=== PATIENT | male | born 1960 | race Caucasian/White ===

== ENCOUNTER 2018-11-05 01:57 | Emergency (ER) | payer OTHER ==
[2018-11-05 02:43] VITALS: TEMP 98.1; BMI 32.1
[2018-11-05] MEDS ORDERED: SODIUM CHLORIDE 1,000 ML IV STA ×2 (03:01→08:50)
[2018-11-05] MEDS ORDERED: ONDANSETRON 4 MG/2 ML VIAL IVPUSH ONE (03:01)
--- NOTE | 2018-11-05 03:06 | PDOC ---
History of Present Illness - General Chief Complaint: Nausea/Vomiting Stated Complaint: VOMITING Time Seen by Provider: 11/05/18 02:56 History Source: Patient Exam Limitations: No Limitations - History of Present Illness Travel History: No Initial Comments: 11/05/18 03:02 HISTORY OF PRESENT ILLNESS: This 58-year-old male with history of NIDDM who presents emergency department for evaluation of epigastric pain and vomiting which started approximate 5:00 this afternoon. Patient reports went to restoration when he came home started to feel nauseous and that's when he had vomited. He is attempted to try to drink and eat after vomiting he continues to experience vomiting. He denies any headaches, chest pain, shortness of breath. No recent travel or sick contacts. PAST MEDICAL HISTORY: NIDDM SURGICAL HISTORY: Denies ALLERGIES: No known drug allergies REVIEW OF SYSTEMS General/Constitutional: Denies fever or chills. Denies weakness, weight change. HEENT: Denies change in vision. Denies ear pain or discharge. Denies sore throat. Cardiovascular: Denies chest pain or shortness of breath. Respiratory: Denies cough, wheezing, or hemoptysis. Gastrointestinal:(+)nausea, vomiting, brown diarrhea. Denies constipation. Denies rectal bleeding. Genitourinary: Denies dysuria, frequency, or change in urination. Musculoskeletal: Denies joint or muscle swelling or pain. (+)upper back pain. Skin and breasts: Denies rash or easy bruising. Neurologic: Denies headache, vertigo, loss of consciousness, or loss of sensation. Psychiatric: Denies depression or anxiety. Endocrine: Denies increased thirst. Denies abnormal weight change. Hematologic/Lymphatic: Denies anemia, easy bleeding, or history of blood clots. Allergic/Immunologic: Denies hives or skin allergy. Denies latex allergy. PHYSICAL EXAM General Appearance: Well-appearing, appropriately dressed. No apparent distress , no intoxication. Respiratory/Chest: Lungs CTAB. No shortness of breath, chest tenderness, respiratory distress, accessory muscle use. No crackles, rales, rhonchi, stridor , wheezing, dullness Cardiovascular: RRR. S1, S2. No JVD, murmur, bradycardia, tachycardia. Gastrointestinal/Abdominal: Normal bowel sounds. Abdomen soft, non-distended. No tenderness or rebound tenderness. No organomegaly, pulsatile mass, guarding, hernia, hepatomegaly, splenomegaly. Musculoskeletal/Extremities: Normal inspection. FROM of all extremities, normal capillary refill. Pelvis Stable. No CVA tenderness. No tenderness to extremities, pedal edema, swelling, erythema or deformity. Past History - Past Medical History Allergies/Adverse Reactions: Allergies Allergy/AdvReac Type Severity Reaction Status Date / Time No Known Allergies Allergy Verified 11/05/18 02:43 Home Medications: Ambulatory Orders NK [No Known Home Medication] 11/05/18 - Suicide/Smoking/Psychosocial Hx Smoking History: Never smoked Have you smoked in the past 12 months: No Information on smoking cessation initiated: No Hx Alcohol Use: No Drug/Substance Use Hx: No *Physical Exam - Vital Signs Last Vital Signs Temp Pulse Resp BP Pulse Ox 98.1 F 105 H 18 128/76 97 11/05/18 01:57 11/05/18 01:57 11/05/18 01:57 11/05/18 01:57 11/05/18 01:57 Moderate Sedation - Procedure Monitoring Vital Signs: Procedure Monitoring Vital Signs Temperature 98.1 F 11/05/18 01:57 Pulse Rate 105 H 11/05/18 01:57 Respiratory Rate 18 11/05/18 01:57 Blood Pressure 128/76 11/05/18 01:57 O2 Sat by Pulse Oximetry (%) 97 11/05/18 01:57 Heart Score/ECG Review - History History: Slightly suspicious - Electrocardiogram EKG: Normal - Age Age: 45-65 - Risk Factors Risk Factors Heart Score: Yes Hx Diabetes Based on the list above the patient has:: 1-2 risk factors - Troponin Troponin: </= normal limit - Score Heart Score - Total: 2 - ECG Impressions Normal ECG: Yes ED Treatment Course - LABORATORY CBC & Chemistry Diagram: 11/05/18 03:30 11/05/18 03:30 Medical Decision Making - Medical Decision Making 11/05/18 03:05 A/P: 58-year-old male with epigastric pain, nausea and vomiting for 10 hours Labs including cardiac profile and lipase EKG Chest x-ray IV fluids Zofran Sono 11/05/18 05:24 CT as read by imaging personal driver: No evidence of acute pathology. 11/05/18 05:47 Chest x-rays read by me: Angles clear. Cardiac silhouette is within normal limits. No focal infiltrates consolidations present. Visualized osseous structures are intact. 11/05/18 07:05 Sign out given to nurse practitioner Lanny. *DC/Admit/Observation/Transfer - Discharge Dispostion Condition at time of disposition: Fair - Referrals Referrals: Amira Mansfield [Primary Care Provider] - - Patient Instructions - Post Discharge Activity
[2018-11-05] MEDS ORDERED: ONDANSETRON 4 MG/2 ML VIAL ONE (03:18)
[2018-11-05] MEDS ORDERED: RANITIDINE HCL 150 MG TABLET (FP) PO ONE (03:29)
[2018-11-05] MEDS ORDERED: MAG HYDROX/AL HYDROX/SIMETH -MYLANTA- ORAL SUSPENSION PO ONE (03:29)
[2018-11-05] MEDS ORDERED: LIDOCAINE VISCOUS 2% ORAL/TOP 20 ML UNIT-DOSE CUP PO ONE (03:29)
[2018-11-05] MEDS ORDERED: LIDOCAINE VISCOUS 2% ORAL/TOP 20 ML UNIT-DOSE CUP ONE (03:32)
[2018-11-05] MEDS ORDERED: RANITIDINE HCL 150 MG TABLET (FP) ONE (03:32)
[2018-11-05] MEDS ORDERED: MAG HYDROX/AL HYDROX/SIMETH 30 ML UNIT-DOSE CUP ONE (03:33)
[2018-11-05 03:35] LABS: BASO % 0.2 % (0-2.0); EOS % 0.7 % (0-4.5); HEMATOCRIT 45.2 % (35.4-49); HEMOGLOBIN 15.8 GM/dL (11.7-16.9); LYMPH % 6.2 % (8-40); MCH 30.5 pg (25.7-33.7); MEAN CELL VOLUME 87.1 fl (80-96); MEAN PLT VOLUME 9.7 fl (7.5-11.1); NEUT % 89.9 % (42.8-82.8); PLATELET COUNT 172 K/MM3 (134-434); RBC 5.19 M/mm3 (4.00-5.60); RDW 13.6 % (11.9-15.9); WHITE BLOOD COUNT 10.2 K/mm3 (4.0-10.0)
[2018-11-05 03:41] LABS: URINE APPEARANCE CLEAR; URINE BILIRUBIN NEGATIVE (<2.0 mg/dL); URINE COLOR YELLOW; URINE GLUCOSE (UA) 3+ (NEGATIVE); URINE KETONE TRACE (NEGATIVE); URINE LEUK ESTERASE NEGATIVE (NEGATIVE); URINE NITRITE NEGATIVE (NEGATIVE); URINE PROTEIN NEGATIVE (NEGATIVE); URINE UROBILINOGEN NEGATIVE mg/dL (0.2-1.0)
[2018-11-05 04:27] LABS: ALBUMIN 4.2 g/dl (3.4-5.0); ALK PHOS 94 U/L (45-117); ANION GAP 8 MMOL/L (8-16); BILIRUBIN,TOTAL 0.7 mg/dL (0.2-1); BLOOD UREA NITROGEN 18 mg/dL (7-18); CALCIUM 8.9 mg/dL (8.5-10.1); CHLORIDE 101 mmol/L (98-107); CO2 26 mmol/L (21-32); CREATININE 0.9 mg/dL (0.55-1.3); GLUCOSE,RANDOM 259 mg/dL (74-106); LIPASE 149 U/L (73-393); POTASSIUM 5.3 mmol/L (3.5-5.1); SGOT/AST 27 U/L (15-37); SGPT/ALT 28 U/L (13-61); SODIUM 135 mmol/L (136-145); TOT PROT 7.9 g/dl (6.4-8.2)
--- NOTE | 2018-11-05 05:02 | PDOC ---
*Physical Exam - Vital Signs Last Vital Signs Temp Pulse Resp BP Pulse Ox 98.1 F 105 H 18 128/76 97 11/05/18 01:57 11/05/18 01:57 11/05/18 01:57 11/05/18 01:57 11/05/18 01:57 ED Treatment Course - LABORATORY CBC & Chemistry Diagram: 11/05/18 03:30 11/05/18 03:30 - ADDITIONAL ORDERS Additional order review: Laboratory Results 11/05/18 11/05/18 03:30 03:30 Sodium 135 L Potassium 5.3 H Chloride 101 Carbon Dioxide 26 Anion Gap 8 BUN 18 Creatinine 0.9 Creat Clearance w eGFR > 60 Random Glucose 259 H Calcium 8.9 Total Bilirubin 0.7 AST 27 ALT 28 Alkaline Phosphatase 94 Creatine Kinase 104 Troponin I < 0.02 Total Protein 7.9 Albumin 4.2 Lipase 149 Urine Color Yellow Urine Appearance Clear Urine pH 5.0 Ur Specific [place] 1.031 Urine Protein Negative Urine Glucose (UA) 3+ H Urine Ketones Trace H Urine Blood Negative Urine Nitrite Negative Urine Bilirubin Negative Urine Urobilinogen Negative Ur Leukocyte Esterase Negative 11/05/18 03:30 RBC 5.19 MCV 87.1 MCHC 35.0 RDW 13.6 MPV 9.7 Neutrophils % 89.9 H Lymphocytes % 6.2 L Monocytes % 3.0 L Eosinophils % 0.7 Basophils % 0.2 - Medications Given in the ED: ED Medications Discontinued Medications Generic Name Dose Route Start Last Admin Trade Name Freq PRN Reason Stop Dose Admin Al Hydroxide/Mg Hydroxide 30 ml 11/05/18 03:29 11/05/18 03:36 Mylanta Suspension - PO 11/05/18 03:30 30 ml ONCE ONE Administration Sodium Chloride 1,000 mls @ 1,000 mls/hr 11/05/18 03:01 11/05/18 03:29 Normal Saline - IV 11/05/18 04:00 1,000 mls/hr ASDIR STA Administration Lidocaine HCl 20 ml 11/05/18 03:29 11/05/18 03:36 Xylocaine 2% Viscous Oral - PO 11/05/18 03:30 20 ml ONCE ONE Administration Ondansetron HCl 4 mg 11/05/18 03:01 11/05/18 03:29 Zofran Injection IVPUSH 11/05/18 03:02 4 mg ONCE ONE Administration Ranitidine HCl 150 mg 11/05/18 03:29 11/05/18 03:37 Zantac - PO 11/05/18 03:30 150 mg ONCE ONE Administration Medical Decision Making - Medical Decision Making 11/05/18 05:02 Patient seen by the advanced practice provider under my direct supervision. Ancillary testing reviewed as necessary. I agree with plan as outlined by the advanced practice provider. *DC/Admit/Observation/Transfer Diagnosis at time of Disposition: Epigastric pain - Discharge Dispostion Disposition: HOME Condition at time of disposition: Improved - Prescriptions Prescriptions: Ranitidine HCl [Zantac] 150 mg PO DAILY #30 tablet - Referrals Referrals: [facility] [place] [facility] [place] [Provider Group] - Call tomorrow (Primary care) - Patient Instructions Printed Discharge Instructions: DI for Gastritis Additional Instructions: -Take Zantac as prescribed for stomach pain -Follow up with our primary care clinic (referral enclosed) -Return for worsening pain, difficulty breathing, or any other concerning symptoms DO NOT TAKE YOUR METFORMIN TODAY as it interacts with the CT scan contrast Print Language: ALBANIAN - Post Discharge Activity
--- NOTE | 2018-11-05 08:31 | PDOC ---
*Physical Exam - Vital Signs Last Vital Signs Temp Pulse Resp BP Pulse Ox 98.1 F 92 H 18 123/64 97 11/05/18 01:57 11/05/18 06:45 11/05/18 06:45 11/05/18 06:45 11/05/18 06:45 ED Treatment Course - LABORATORY CBC & Chemistry Diagram: 11/05/18 03:30 11/05/18 03:30 - ADDITIONAL ORDERS Additional order review: Laboratory Results 11/05/18 11/05/18 11/05/18 06:57 03:30 03:30 Sodium 135 L Potassium 5.3 H Chloride 101 Carbon Dioxide 26 Anion Gap 8 BUN 18 Creatinine 0.9 Creat Clearance w eGFR > 60 Random Glucose 259 H Calcium 8.9 Total Bilirubin 0.7 AST 27 ALT 28 Alkaline Phosphatase 94 Creatine Kinase 104 Troponin I < 0.02 < 0.02 Total Protein 7.9 Albumin 4.2 Lipase 149 Urine Color Yellow Urine Appearance Clear Urine pH 5.0 Ur Specific [place] 1.031 Urine Protein Negative Urine Glucose (UA) 3+ H Urine Ketones Trace H Urine Blood Negative Urine Nitrite Negative Urine Bilirubin Negative Urine Urobilinogen Negative Ur Leukocyte Esterase Negative 11/05/18 03:30 RBC 5.19 MCV 87.1 MCHC 35.0 RDW 13.6 MPV 9.7 Neutrophils % 89.9 H Lymphocytes % 6.2 L Monocytes % 3.0 L Eosinophils % 0.7 Basophils % 0.2 - Medications Given in the ED: ED Medications Discontinued Medications Generic Name Dose Route Start Last Admin Trade Name Freq PRN Reason Stop Dose Admin Al Hydroxide/Mg Hydroxide 30 ml 11/05/18 03:29 11/05/18 03:36 Mylanta Suspension - PO 11/05/18 03:30 30 ml ONCE ONE Administration Sodium Chloride 1,000 mls @ 1,000 mls/hr 11/05/18 03:01 11/05/18 03:29 Normal Saline - IV 11/05/18 04:00 1,000 mls/hr ASDIR STA Administration Lidocaine HCl 20 ml 11/05/18 03:29 11/05/18 03:36 Xylocaine 2% Viscous Oral - PO 11/05/18 03:30 20 ml ONCE ONE Administration Ondansetron HCl 4 mg 11/05/18 03:01 11/05/18 03:29 Zofran Injection IVPUSH 11/05/18 03:02 4 mg ONCE ONE Administration Ranitidine HCl 150 mg 11/05/18 03:29 11/05/18 03:37 Zantac - PO 11/05/18 03:30 150 mg ONCE ONE Administration Medical Decision Making - Medical Decision Making 11/05/18 10:10 Us demonstrates no gallstones/evidence of cholecystitis. There is possible fatty infiltration of the liver, however LFTs are within normal limits. Trop neg x 2. Symptoms resolved, patient tolerated PO. He does have a history of acid reflux and reports that he was drinking more coffee than normal yesterday; symptoms may be attributable to this. He did have endoscopy/colonoscopy with Dr. Jaimes last year, and states that he will follow-up with him if symptoms recur. *DC/Admit/Observation/Transfer Diagnosis at time of Disposition: Epigastric pain - Discharge Dispostion Disposition: HOME Condition at time of disposition: Improved Decision to Admit order: No - Prescriptions Prescriptions: Ranitidine HCl [Zantac] 150 mg PO DAILY #30 tablet - Referrals Referrals: [facility] [place] [facility] [place] [Provider Group] - Call tomorrow (Primary care) - Patient Instructions Printed Discharge Instructions: DI for Gastritis Additional Instructions: -Take Zantac as prescribed for stomach pain -Follow up with our primary care clinic (referral enclosed) -Return for worsening pain, difficulty breathing, or any other concerning symptoms DO NOT TAKE YOUR METFORMIN TODAY as it interacts with the CT scan contrast Print Language: PERSIAN - Post Discharge Activity
--- NOTE | 2018-11-05 09:54 | EKG ---
Test Reason : Blood Pressure : / mmHG Vent. Rate : 100 BPM Atrial Rate : 100 BPM P-R Int : 164 ms QRS Dur : 092 ms QT Int : 344 ms P-R-T Axes : 037 -09 028 degrees QTc Int : 443 ms NORMAL SINUS RHYTHM NORMAL ECG NO PREVIOUS ECGS AVAILABLE Confirmed by RACHEL PAL, JO ANN ([id number]) on 11/05/2018 9:54:31 AM Referred By: Confirmed By:JO ANN RAMOS MD
[2018-11-05 10:44] VITALS: BP 129/72; PULSE 77
== END 2018-11-05 10:44 | disposition home or self-care (01) ==
LOC: JER 01:57
PROC: 3E033GC Introduction of Other Therapeutic Substance into Peripheral Vein, Percutaneous Approach (ICD-10-PCS; principal; 2018-11-05)
PROC: 3E0337Z Introduction of Electrolytic and Water Balance Substance into Peripheral Vein, Percutaneous Approach (ICD-10-PCS; 2018-11-05)
DX: R10.13 Epigastric pain (principal); E11.9 Type 2 diabetes mellitus without complications
CPT/HCPCS: 36415; 71046-TC-FY; 74177-TC; 76705-TC; 80053; 81003; 82550; 83690; 84484; 85025; 93005; 93010; 96361; 96374; 99282-25; J7030

== ENCOUNTER 2019-02-03 09:58 | Emergency (ER) | payer OTHER ==
[2019-02-03 10:10] VITALS: BP 142/73; PULSE 78; TEMP 97.8; BMI 31.2
[2019-02-03] MEDS ORDERED: KETOROLAC TROMETHAMINE 60 MG/2 ML VIAL IM ONE (11:04)
[2019-02-03] MEDS ORDERED: KETOROLAC TROMETHAMINE 60 MG/2 ML VIAL ONE (11:06)
--- NOTE | 2019-02-03 11:08 | PDOC ---
History of Present Illness - General Chief Complaint: Back Pain Stated Complaint: RT. SIDE LOWER BACK PAIN Time Seen by Provider: 02/03/19 10:21 History Source: Patient Exam Limitations: Clinical Condition - History of Present Illness Initial Comments: 02/03/19 11:09 Patient with history of chronic back pain and sciatica be managed by pain management present with complaint of worsening right lower back pain radiating down posterior right thigh area patient reported has been getting cortisone shot by pain management for the past 2 years which he had a shot last month but has not been helping the pain now. Patient has not seen orthopedics for his pain should reported injury 4 years ago which he was found to have multiple herniated disc in the lower back and being managed by pain management and physical therapy. Denies urinary or fecal incontinence. Timing/Duration: getting worse, other (4 years) Past History - Past Medical History Allergies/Adverse Reactions: Allergies Allergy/AdvReac Type Severity Reaction Status Date / Time No Known Allergies Allergy Verified 11/05/18 02:43 Home Medications: Ambulatory Orders Ranitidine HCl [Zantac] 150 mg PO DAILY #30 tablet 11/05/18 Acetaminophen 500 mg PO QID PRN 02/03/19 Lidocaine 5% Patch [Lidoderm -] 1 patch TP DAILY #30 patch 02/03/19 Methocarbamol [Robaxin -] 750 mg PO Q8H PRN #20 tablet 02/03/19 Naproxen 500 mg PO BID PRN #20 tablet. 02/03/19 COPD: No Diabetes: Yes Hypercholesterolemia: Yes Other medical history: PROSTATE - Immunization History Td Vaccination: Yes Immunization Up to Date: Yes - Suicide/Smoking/Psychosocial Hx Smoking History: Never smoked Have you smoked in the past 12 months: No Hx Alcohol Use: No Drug/Substance Use Hx: No Review of Systems - Review of Systems Able to Perform ROS?: Yes Is the patient limited Khmer proficient: No Constitutional: No: Weakness HEENTM: No: Symptoms Reported Respiratory: No: Symptoms reported Cardiac (ROS): No: Symptoms Reported ABD/GI: No: Symptoms Reported, Nausea, Vomiting : Yes: See HPI. No: Incontinence Musculoskeletal: Yes: Symptoms Reported, See HPI, Back Pain, Muscle Pain (right lower back raditing down leg), Muscle Weakness (right lower back radiating down right posterior thigh). No: Joint Stiffness Neurological: Yes: Tingling. No: Numbness, Paresthesia All Other Systems: Reviewed and Negative *Physical Exam - Vital Signs Last Vital Signs Temp Pulse Resp BP Pulse Ox 97.8 F 78 18 142/73 99 02/03/19 10:06 02/03/19 10:06 02/03/19 10:06 02/03/19 10:06 02/03/19 10:06 - Physical Exam Comments: 02/03/19 12:25 GENERAL: Well developed, well nourished. Awake and alert in moderate acute distress. CARDIOVASCULAR: Regular rate and rhythm. No murmurs, rubs, or gallops. PULMONARY: No evidence of respiratory distress. ABDOMINAL: Soft. Non-tender. Non-distended. No rebound or guarding. No organomegaly. Normoactive bowel sounds MUSCULOSKELETAL : moderate tenderness over right paravertebral muscle of lower lumbosacral spine of L2-S1 which is worsened with elevation of right LE. No bony deformities EXTREMITIES: No cyanosis. No clubbing. No edema. No calf tenderness. SKIN: Warm and dry. Normal capillary refill. No rashes. No jaundice. NEUROLOGICAL: Alert, awake, appropriate. No motor deficits in the lower extremities. Gait is normal without ataxia. PSYCHIATRIC: Cooperative. Good eye contact. Appropriate mood and affect. General Appearance: Yes: Nourished, Appropriately Dressed, Moderate Distress Medical Decision Making - Medical Decision Making 02/03/19 11:10 Patient with history of chronic back pain and sciatica be managed by pain management present with complaint of worsening right lower back pain radiating down posterior right thigh area patient reported has been getting cortisone shot by pain management for the past 2 years which he had a shot last month but has not been helping the pain now. Patient has not seen orthopedics for his pain should reported injury 4 years ago which he was found to have multiple herniated disc in the lower back and being managed by pain management and physical therapy. Denies urinary or fecal incontinence. Exam significant for moderate tenderness to right lower vertebra muscle of the lower lumbar spine of L2-S1 which is worse with elevation of right lower extremity. Toradol 60 mg IM given for pain. Patient will be discharged home on naproxen, topical lidocaine patch and Robaxin muscle relaxer with orthopedist spine follow -up *DC/Admit/Observation/Transfer Diagnosis at time of Disposition: Lumbago with sciatica, right side Qualifiers: Chronicity: chronic Back pain laterality: right Qualified Code(s): M54.41 - Lumbago with sciatica, right side - Discharge Dispostion Disposition: HOME Condition at time of disposition: Stable Decision to Admit order: No - Prescriptions Prescriptions: Lidocaine 5% Patch [Lidoderm -] 1 patch TP DAILY #30 patch Methocarbamol [Robaxin -] 750 mg PO Q8H PRN #20 tablet PRN Reason: Back Pain Naproxen 500 mg PO BID PRN #[address] MARTINEZ Reason: Back Pain - Referrals Referrals: Braxton Jiang MD, FA[facility] [Staff Physician] - LaReji MD [Staff Physician] - - Patient Instructions Printed Discharge Instructions: Managing Chronic Low Back Pain, DI for Low Back Pain Additional Instructions: Take medication as prescribed. Apply heat to lower back 2-3 times per day as needed for pain. Follow-up with referred spine orthopedics - Post Discharge Activity Forms/Work/School Notes: Back to Work
== END 2019-02-03 12:03 | disposition home or self-care (01) ==
LOC: JERFT 09:58
PROC: 3E0233Z Introduction of Anti-inflammatory into Muscle, Percutaneous Approach (ICD-10-PCS; principal; 2019-02-03)
DX: M54.41 Lumbago with sciatica, right side (principal); E11.9 Type 2 diabetes mellitus without complications; E78.00 Pure hypercholesterolemia, unspecified
CPT/HCPCS: 96372; 99281-25

== ENCOUNTER 2019-02-20 10:11 | Emergency (ER) | payer OTHER ==
[2019-02-20 10:37] VITALS: BMI 26.6
--- NOTE | 2019-02-20 11:02 | PDOC ---
History of Present Illness - General Chief Complaint: Back Pain Stated Complaint: LOWER BACK PAIN Time Seen by Provider: 02/20/19 10:39 History Source: Patient Exam Limitations: No Limitations - History of Present Illness Initial Comments: 58 yo sami pseaking M w a pmh of HTN, NIDDM, chronic back pain and sciatica managed by pain management presents to the ER with a 1 day hx of lower back pain which started yesterday around 4 pm. 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 He had bilateral lower back pain which radiated down to the mid thigh. The pain is constant and worsened with movement. He denies any focal neuro deficits such as muscle weakness, urinary incontinence. or muscle weakness. He had an MRI done recently, before this incident which showed significant disc pertrusion and spinal cord disease. PCP: Amira Amador PSH: Appendectomy, Social Hx: Denies smoking, drinking, or other substance usage Allergies: NKA, NKDA Past History - Past Medical History Allergies/Adverse Reactions: Allergies Allergy/AdvReac Type Severity Reaction Status Date / Time No Known Allergies Allergy Verified 02/20/19 11:32 Home Medications: Ambulatory Orders Acetaminophen with Codeine [Acetaminophen-Cod #3 Tablet] 1 each PO BID PRN 02/20 Aspirin [ASA -] 81 mg PO DAILY 02/20/19 Atorvastatin Ca [Lipitor] 20 mg PO HS 02/20/19 Gabapentin 300 mg PO DAILY 02/20/19 Lisinopril 5 mg PO DAILY 02/20/19 Metformin HCl [Glucophage] 1,000 mg PO BID 02/20/19 Methylprednisolone [Medrol Dose Justice] 4 mg PO ASDIR #21 tablet 02/20/19 Mirabegron [Myrbetriq] 50 mg PO DAILY 02/20/19 COPD: No Diabetes: Yes Hypercholesterolemia: Yes - Surgical History Appendectomy: Yes - Immunization History Td Vaccination: Yes Immunization Up to Date: Yes - Suicide/Smoking/Psychosocial Hx Smoking History: Never smoked Have you smoked in the past 12 months: No Hx Alcohol Use: No Drug/Substance Use Hx: No Review of Systems - Review of Systems Able to Perform ROS?: Yes Comments:: CONSTITUTIONAL: Absent: fever, no chills, no fatigue EYES: Absent: visual changes ENT: Absent: ear pain, no sore throat CARDIOVASCULAR: Absent: chest pain, no palpitations RESPIRATORY: Absent: cough, no SOB GI: Absent: abdominal pain, no nausea, no vomiting, no constipation, no diarrhea GENITOURINARY: Absent: dysuria, no frequency, no hematuria MUSKULOSKELETAL: Present: Back pain Absent: no arthralgia, no myalgia SKIN: Absent: rash NEURO: Absent: headache *Physical Exam - Vital Signs Last Vital Signs Temp Pulse Resp BP Pulse Ox 98.4 F 78 18 122/83 99 02/20/19 10:11 02/20/19 10:11 02/20/19 10:11 02/20/19 10:11 02/20/19 10:11 - Physical Exam Comments: GENERAL: Well-appearing, well-nourished. Moderate distress. HEENT: Normocephalic, atraumatic. PERRL, EOM intact. CARDIOVASCULAR: Normal S1, S2. Regular rate and rhythm. PULMONARY: No evidence of respiratory distress. Lungs clear to auscultation bilaterally. No wheezing, rales or rhonchi. ABDOMEN: Soft, non-distended, non-tender. EXTREMITIES: Limited ROM in lower extremities. Pain with leg ROM. No gross deformities. SKIN: Warm, dry. No rash NEUROLOGICAL: No focal neurological deficits. Rectal Exam: positive: normal rectal tone ED Treatment Course - LABORATORY CBC & Chemistry Diagram: 02/20/19 11:19 02/20/19 11:19 Medical Decision Making - Medical Decision Making 58 yo sami pseaking M w a pmh of HTN, NIDDM, chronic back pain and sciatica managed by pain management presents to the ER with a 1 day hx of lower back pain which started yesterday around 4 pm. 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 He had bilateral lower back pain which radiated down to the mid thigh. The pain is constant and worsened with movement. He denies any focal neuro deficits such as muscle weakness, urinary incontinence. or muscle weakness. He had an MRI done recently, before this incident which showed significant disc pertrusion and spinal cord disease. VS: WNL DDx IBNLT: herniated disc, renal stones, MSK pain, electrolyte/metabolic disturbance Plan: Basic labs, analgesia, Neuro-surgery consult, re-assess. Dr. Jiang came and evaluated the patient and discussed how the patient could benefit from a laminectomy in around a month time frame. - Also recommended an abdominal binder and a medrol dose pack Patient is ambulating around the ER with an abdominal binder. Will DC with neuro surgery follow up *DC/Admit/Observation/Transfer Diagnosis at time of Disposition: Back pain - Discharge Dispostion Disposition: HOME Condition at time of disposition: Stable Decision to Admit order: No - Prescriptions Prescriptions: Methylprednisolone [Medrol Dose Justice] 4 mg PO ASDIR #21 tablet - Referrals Referrals: Amira Mansfield [Primary Care Provider] - Braxton Jiang MD, FA[facility] [Staff Physician] - - Patient Instructions Printed Discharge Instructions: DI for Back Pain With Sciatica Additional Instructions: You came into the ER with back pain. we looked at your blood - work and found no abnormalities. We had a neurosurgeon come and evaluate you and he would liek for you to see him in his office in one month from now. (Dr. Jiang) We sent a medrol dose pack to your local pharmacy, please make sure to go and pick it up. Come back to the ER if your pain worsens or your have any other new or worsening concerns. Thank you for coming to the [facility] ER. We hope you feel better soon! Print Language: LIBERIAN - Post Discharge Activity
[2019-02-20] MEDS ORDERED: morphine CARPU-JECT 4 MG/1 ML DISP.SYRIN IVPUSH ONE (11:17)
[2019-02-20 11:26] LABS: BASO % 0.8 % (0-2.0); EOS % 1.8 % (0-4.5); HEMOGLOBIN 15.3 GM/dL (11.7-16.9); LYMPH % 28.6 % (8-40); MCHC 34.1 g/dl (32.0-35.9); MEAN PLT VOLUME 8.6 fl (7.5-11.1); MONO % 8.6 % (3.8-10.2); NEUT % 60.2 % (42.8-82.8); PLATELET COUNT 179 K/MM3 (134-434); RBC 5.11 M/mm3 (4.00-5.60); RDW 14.6 % (11.9-15.9); WHITE BLOOD COUNT 5.2 K/mm3 (4.0-10.0)
[2019-02-20] MEDS ORDERED: morphine SULFATE 4 MG/ML VIAL ONE (11:28)
[2019-02-20 11:55] LABS: ANION GAP 4 MMOL/L (8-16); BLOOD UREA NITROGEN 16 mg/dL (7-18); CALCIUM 9.1 mg/dL (8.5-10.1); CHLORIDE 104 mmol/L (98-107); CO2 29 mmol/L (21-32); CREATININE 0.7 mg/dL (0.55-1.3); GLUCOSE,RANDOM 188 mg/dL (74-106); SODIUM 137 mmol/L (136-145)
--- NOTE | 2019-02-20 14:04 | PDOC ---
Documentation entered by Vashti Larson SCRIBE, acting as scribe for Monae Molina MD. Monae Molina MD: This documentation has been prepared by the Marsha ureña Nirvannie, SCRIBE, under my direction and personally reviewed by me in its entirety. I confirm that the documentation accurately reflects all work, treatment, procedures, and medical decision making performed by me. Attending Attestation - Resident Resident Name: Erik Pappas - ED Attending Attestation I have performed the following: I have examined & evaluated the patient, The case was reviewed & discussed with the resident, I agree w/resident's findings & plan - HPI HPI: 02/20/19 12:39 The patient is a 58 year old male, with a significant past medical history of chronic back pain, HTN, and NIDDM, who presents to the emergency department with , 1 day of acute on chronic lower back pain. As per patient, his chronic back pain was exacerbated after picking up a leaf blower at work. Patient constant pain worsened with movement and radiating down the mid thigh, prompting his arrival to the ED. He denies any LOC or head/neck trauma. He denies any changes in strength or sensation. Allergies: NKDA Primary Care Physician: Dr. Mansfield - Physicial Exam PE: 02/20/19 13:36 GENERAL: The patient is in no acute distress. ENT: Ears normal, nares patent, oropharynx clear without exudates. Moist mucous membranes. NECK: Normal range of motion, supple LUNGS: Breath sounds equal, clear to auscultation bilaterally. No wheezes, and no crackles. HEART:Regular rate and rhythm, normal S1 and S2 without murmur, rub or gallop. ABDOMEN: Soft, nontender, normoactive bowel sounds. EXTREMITIES: Normal range of motion, no edema. NEUROLOGICAL: Cranial nerves II through XII grossly intact. Normal speech. No focal neurological deficits. Lumbar tenderness diffusely to palpation Motor function intact at hips, knees, ankles Sensation intact bilaterally SKIN: Warm, Dry, normal turgor, no rashes or lesions noted. - Medical Decision Making 02/20/19 13:38 58 yo M presenting to the ER with a h/o chronic back pain which has worsened s/ p lifting leaf blower Examination reveals no weakness in the lower extremities Sensation intact DD: Lumbar disc herniation, sciatica, doubt mass/infection Will do: basic labs Pain medication ReAssess ambulation Laboratory Tests 02/20/19 02/20/19 11:19 11:19 WBC 5.2 Hgb 15.3 Hct 45.0 Plt Count 179 BUN 16 Creatinine 0.7 had a recent MRI demonstrating L5, S1 disc herniation 02/20/19 13:49 Pt was previously referred to Dr. Jiang (has not seen him) Dr. Jiang is available to see this patient in the ER Anticipate discharge on pain medications 02/20/19 15:40 Dr. Jiang recommends Medrol dose pack Will discharge with additional medications Pt ambulatory in the ER no foot drop Pt given an ABD binder Pt given strict return precautions *DC/Admit/Observation/Transfer Diagnosis at time of Disposition: Back pain - Discharge Dispostion Disposition: HOME Condition at time of disposition: Stable - Prescriptions Prescriptions: Lidocaine 5% Patch [Lidoderm Patch -] 1 patch TP DAILY PRN #30 patch PRN Reason: Pain Methocarbamol [Robaxin -] 500 mg PO TID PRN #30 tablet PRN Reason: Lower Back Pain Methylprednisolone [Medrol Dose Justice] 4 mg PO ASDIR #21 tablet Naproxen [Naprosyn -] 500 mg PO BID PRN #14 tablet PRN Reason: Pain Oxycodone HCl/Acetaminophen [Percocet 5-325 mg Tablet -] 1 tab PO TID PRN #10 tablet MDD 3 PRN Reason: Severe Pain - Referrals Referrals: Amira Mansfield [Primary Care Provider] - Braxton Jiang MD, FAANS [Staff Physician] - - Patient Instructions Printed Discharge Instructions: DI for Back Pain With Sciatica Additional Instructions: You came into the ER with back pain. we looked at your blood - work and found no abnormalities. We had a neurosurgeon come and evaluate you and he would like for you to see him in his office in one month from now. (Dr. Jiang) We sent a medrol dose pack to your local pharmacy, please make sure to go and pick it up. Come back to the ER if your pain worsens or your have any other new or worsening concerns (incontinence, pain that does not improve with pain medications). Thank you for coming to the [facility] ER. We hope you feel better soon! Print Language: GEORGIAN - Post Discharge Activity
[2019-02-20] MEDS ORDERED: IBUPROFEN 400 MG TABLET (FP) PO ONE ×2 (14:44→15:03)
[2019-02-20 15:03] VITALS: BP 126/78; PULSE 76; TEMP 98
--- NOTE | 2019-02-20 20:32 | CONSULT ---
Consult - text type - Consultation Consultation Note: NEUROSURGERY CONSULTATION Patient is a 58 year old Latin male with a 3 year history of back pain. He describes initial injury from a fall and extensive conservative efforts for pain control. 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 He has had one attempt at injections and tried Physical Therapy briefly, however, had to cease PT due to severe exacerbation of his pain. He underwent MRI Lumbar on Monday, February 18, 2019 which demonstrated moderate degenerative changes at L5S1 with disc bulging, osteophytes, Modic changes and stenosis. On February, the patient fell backwards while working and developed severe Left leg radicular progression. He feels that this is inflamatory in nature and requests a brace and anti-inflamatory medications. The patient relates aggravation associated with vibration and jostling such as riding in a car over a bumpy road, pot holes , or rail road tracks. He has increased pain associated with Valsalva's maneuver , coughing and straining in the bathroom. I discussed the potential role of L5S1 decompression and fusion if his acute exacerbation cannot be controlled or his symptoms persist for more than 8 weeks. At this point, an abdominal binder and Medrol Dosepack would be reasonable initial efforts. If his pain persists, ERNIE would be appropriate. He may require TLSO brace if abdominal binder is insufficient to control his mechanical pain. I answered all of his questions and provided him with contact information and a list of warning signs.
== END 2019-02-20 16:03 | disposition home or self-care (01) ==
LOC: JER 10:11
PROC: 3E033NZ Introduction of Analgesics, Hypnotics, Sedatives into Peripheral Vein, Percutaneous Approach (ICD-10-PCS; principal; 2019-02-20)
DX: M54.5 Low back pain (principal); I10 Essential (primary) hypertension; E11.9 Type 2 diabetes mellitus without complications; G89.29 Other chronic pain
CPT/HCPCS: 36415; 80048; 85025; 96374; 99283-25

== ENCOUNTER 2019-02-23 10:16 | Emergency (ER) | payer OTHER ==
[2019-02-23 10:30] VITALS: BP 123/74; PULSE 95; TEMP 98.5; BMI 27.7
--- NOTE | 2019-02-23 11:29 | PDOC ---
History of Present Illness - General Chief Complaint: Back Pain Stated Complaint: BACK PAIN Time Seen by Provider: 02/23/19 11:10 - History of Present Illness Initial Comments: 02/23/19 11:24 The 8-year-old male presents for evaluation of ongoing lower back pain with left leg radicular symptoms without loss of bowel or bladder function or systemic symptoms. He never followed up with neurosurgery. He was seen in the ER about 3 days ago. Past History - Past Medical History Allergies/Adverse Reactions: Allergies Allergy/AdvReac Type Severity Reaction Status Date / Time No Known Allergies Allergy Verified 02/23/19 10:22 Home Medications: Ambulatory Orders Acetaminophen with Codeine [Acetaminophen-Cod #3 Tablet] 1 each PO BID PRN 02/20 Aspirin [ASA -] 81 mg PO DAILY 02/20/19 Atorvastatin Ca [Lipitor] 20 mg PO HS 02/20/19 Gabapentin 300 mg PO DAILY 02/20/19 Lidocaine 5% Patch [Lidoderm Patch -] 1 patch TP DAILY PRN #30 patch 02/20/19 Lisinopril 5 mg PO DAILY 02/20/19 Metformin HCl [Glucophage] 1,000 mg PO BID 02/20/19 Methocarbamol [Robaxin -] 500 mg PO TID PRN #30 tablet 02/20/19 Methylprednisolone [Medrol Dose Justice] 4 mg PO ASDIR #21 tablet 02/20/19 Mirabegron [Myrbetriq] 50 mg PO DAILY 02/20/19 Naproxen [Naprosyn -] 500 mg PO BID PRN #14 tablet 02/20/19 Oxycodone HCl/Acetaminophen [Percocet 5-325 mg Tablet -] 1 tab PO TID PRN #10 tablet MDD 3 02/20/19 COPD: No Diabetes: Yes Hypercholesterolemia: Yes - Surgical History Appendectomy: Yes - Immunization History Td Vaccination: Yes Immunization Up to Date: Yes - Suicide/Smoking/Psychosocial Hx Smoking History: Never smoked Have you smoked in the past 12 months: No Hx Alcohol Use: No Drug/Substance Use Hx: No Review of Systems - Review of Systems Constitutional: No: Fever : No: Incontinence Musculoskeletal: Yes: Back Pain *Physical Exam - Vital Signs Last Vital Signs Temp Pulse Resp BP Pulse Ox 98.5 F 95 H 17 123/74 97 02/23/19 10:23 02/23/19 10:23 02/23/19 10:23 02/23/19 10:23 02/23/19 10:23 - Physical Exam Comments: 02/23/19 11:29 Lumbar spine skin color and temperature are normal range of motion is limited there is no midline tenderness moderate right left paralumbar musculature spasm and tenderness. 5 out of 5 strength bilateral lower extremity is without gross sensorimotor deficits. Neurovascularly intact. Thighs and calves are soft and nontender. Medical Decision Making - Medical Decision Making 02/23/19 11:29 Ongoing lower back pain, patient is on a Medrol Dosepak and anti-inflammatory narcotic pain medication lidocaine patches and muscle relaxers. I will have him follow-up with neuro surgery as advised prior *DC/Admit/Observation/Transfer Diagnosis at time of Disposition: Back pain - Discharge Dispostion Disposition: HOME Condition at time of disposition: Stable Decision to Admit order: No - Referrals Referrals: Amira Mansfield [Primary Care Provider] - Giovanni Brewster MD [Staff Physician] - - Patient Instructions Printed Discharge Instructions: Lumbar Radiculopathy, DI for Lumbar Radiculopathy Additional Instructions: You must follow-up with neurosurgery or Orthopedic spine surgery without fail in the next 1-2 days for further evaluation and treatment options. Continue your medication as directed and return to the emergency room should symptoms worsen. - Post Discharge Activity
== END 2019-02-23 11:51 | disposition home or self-care (01) ==
LOC: JERFT 10:16
DX: M54.16 Radiculopathy, lumbar region (principal); E11.9 Type 2 diabetes mellitus without complications; Z79.84 Long term (current) use of oral hypoglycemic drugs; E78.00 Pure hypercholesterolemia, unspecified; Z79.82 Long term (current) use of aspirin
CPT/HCPCS: 99281-25

== ENCOUNTER 2019-03-09 05:36 | Emergency (ER) | payer OTHER ==
[2019-03-09 06:09] VITALS: BMI 31.1
[2019-03-09] MEDS ORDERED: IBUPROFEN 400 MG TABLET (FP) PO ONE ×2 (06:25→06:47)
[2019-03-09] MEDS ORDERED: valACYclovir HCL 1000 MG TABLET PO ONE (06:25)
[2019-03-09] MEDS ORDERED: valACYclovir HCL 500 MG TABLET (FP) ONE (06:36)
[2019-03-09] MEDS ORDERED: IBUPROFEN 600 MG TABLET (FP) PO ONE (06:36)
--- NOTE | 2019-03-09 06:39 | PDOC ---
History of Present Illness - General Chief Complaint: Rash Stated Complaint: GROIN RASH - History of Present Illness Initial Comments: Rustam Hartley is a 58yo man with a PMH of HTN, HLD, NIDDM, and chronic back pain who presents with a rash over the right low back, right hip, and around to the right scrotum. He states that the rash first started on Saturday with a few spots, but it has spread over the past few days. He went to [facility] and was told that he had shingles. He was given an unknown medication as well as a prescription, but he was unable to pickle pumper the prescription because the pharmacy was not open on Saturday. He does not know what med he received in the ED , but he says that it did not help the pain at all. He did try taking ibuprofen at home yesterday, once in the morning and once at night, without significant improvement in his pain. He was unable to bear it at home any more so presented to the ED this morning. Past History - Past Medical History Allergies/Adverse Reactions: Allergies Allergy/AdvReac Type Severity Reaction Status Date / Time No Known Allergies Allergy Verified 03/09/19 06:06 Home Medications: Ambulatory Orders Acetaminophen with Codeine [Acetaminophen-Cod #3 Tablet] 1 each PO BID PRN 02/20 Aspirin [ASA -] 81 mg PO DAILY 02/20/19 Atorvastatin Ca [Lipitor] 20 mg PO HS 02/20/19 Gabapentin 300 mg PO DAILY 02/20/19 Lidocaine 5% Patch [Lidoderm Patch -] 1 patch TP DAILY PRN #30 patch 02/20/19 Lisinopril 5 mg PO DAILY 02/20/19 Metformin HCl [Glucophage] 1,000 mg PO BID 02/20/19 Methocarbamol [Robaxin -] 500 mg PO TID PRN #30 tablet 02/20/19 Methylprednisolone [Medrol Dose Justice] 4 mg PO ASDIR #21 tablet 02/20/19 Mirabegron [Myrbetriq] 50 mg PO DAILY 02/20/19 Naproxen [Naprosyn -] 500 mg PO BID PRN #14 tablet 02/20/19 Oxycodone HCl/Acetaminophen [Percocet 5-325 mg Tablet -] 1 tab PO TID PRN #10 tablet MDD 3 02/20/19 COPD: No Diabetes: Yes Hypercholesterolemia: Yes - Surgical History Appendectomy: Yes - Immunization History Td Vaccination: Yes Immunization Up to Date: Yes - Suicide/Smoking/Psychosocial Hx Smoking History: Never smoked Have you smoked in the past 12 months: No Hx Alcohol Use: No Drug/Substance Use Hx: No Review of Systems - Review of Systems Comments:: General: No fevers, no chills, no weight or appetite change, no malaise HEENT: No changes in vision, no changes in hearing, no congestion, no sore throat CV: No chest pain, no palpitations, no LE edema Pulm: No SOB, no cough, no wheezing GI: No nausea or vomiting, no change in bowel habits, no melena : No frequency, no urgency, no dysuria Musc: +chronic back pain, no joint swelling, no recent injury Skin: See HPI Endo: No excessive thirst, no heat/cold intolerance Heme: No unusual bruising or bleeding, no swollen glands Neuro: No syncope, no numbness/tingling, no focal weakness Vasc: No claudication Psych: No recent change in mood, no SI or HI *Physical Exam - Vital Signs Last Vital Signs Temp Pulse Resp BP Pulse Ox 98.1 F 94 H 18 132/76 98 03/09/19 06:06 03/09/19 06:06 03/09/19 06:06 03/09/19 06:06 03/09/19 06:06 - Physical Exam Comments: General: Uncomfortable HEENT: PERRL, EOMI, MMM, voice normal, normal neck ROM, no LAD Cards: RRR Pulm: Comfortable on room air Abd: Soft, nontender, nondistended : Blistering rash on right scrotum Ext: Atraumatic. No LE edema. ROM intact. Vasc: Extremities WWP. Skin: Blistering/vesicular rash on right low back, right flank, right groin, right scrotum. c/w L5-S1 dermatomes. No drainage, no bleeding, no surrounding erythema. Neuro: A&Ox3, CN grossly intact, normal speech, motor/sensory grossly intact and symmetric Psych: Mood appropriate to situation Medical Decision Making - Medical Decision Making 03/09/19 06:26 Rustam Hartley is a 58yo man with a PMH of HTN, HLD, NIDDM, and chronic back pain who presents with a vesicular, blistering rash over the right low back, right hip, and around to the right scrotum consistent with shingles. - Per pt, received a medication in the ED at [facility] as well as prescription he was unable to pickle pumper. He does not know what it was but was likely valacyclovir or acyclovir - Mr Hartley reports taking 500mg acetaminophen yesterday morning and yesterday night w/o significant improvement. Appears to have been underdosing his pain medication - 1000mg valacyclovir ordered for shingles - 800mg ibuprofen for pain - Will likely d/c home after evaluation by Dr Gilman. 03/09/19 07:16 - Seen with Ivanna Gilman and Stan. CBC, CMP, UA, UCx ordered - Pt signed out to Dr Ellison for the remainder of his ED care. Discussed with Dr Gilman and Dr Pierce. Renetta Cade PGY1 *DC/Admit/Observation/Transfer Diagnosis at time of Disposition: Shingles - Discharge Dispostion Disposition: HOME Condition at time of disposition: Stable Decision to Admit order: No - Referrals Referrals: Amira Mansfield [Primary Care Provider] - - Patient Instructions Printed Discharge Instructions: DI for Shingles Additional Instructions: Discharge Instructions: You were seen in the emergency department for a blistering rash. This rash is a disease called shingles. Home Care and Follow Up: - You have been prescribed an antibiotic called valacyclovir. This should be taken every 8 hours (three times per day) for the next 14 days - You may use over the counter medications as needed for pain at home. 650- 1000mg acetaminophen (Tylenol) or 600mg ibuprofen (Motrin or Advil) can be used every 6-8 hours. If needed for continued pain, these medications may be alternated every 3-4 hours. For example, if you take ibuprofen at 9am, you may take acetaminophen at noon, ibuprofen at 3pm, etc. - It is strongly recommended that you take ibuprofen with food to help prevent stomach irritation. If you are taking it for more than a day or two, you may consider taking an acid medication such as Pepcid or Xantac, available over the counter, to protect your stomach. This should be taken first thing in the morning 30-60 minutes before any food or medications. - If your rash and pain not improve over the next week, you have been referred to the internal medicine clinic for follow up. - Seek immediate medical care if you have significant worsening of your symptoms , the rash spreads to other areas of your body, you are unable to control your pain, you are unable to urinate, or you have any other medical emergency, Instrucciones de descarga: Usted fue visto en el departamento de emergencias por checo erupcin con ampollas. Esta erupcin es checo enfermedad llamada culebrilla. Atencin domiciliaria y seguimiento: - Le murrell recetado un antibitico llamado valaciclovir. [place] debe tomarse cada 8 horas (darien veces al da) kelsey los prximos 14 gómez - Puede usar medicamentos de venta sam segn sea necesario para el dolor en el hogar. Se pueden usar 650-1000 mg de paracetamol (Tylenol) o 600 mg de ibuprofeno (Motrin o Advil) cada 6-8 horas. Si es necesario para el dolor continuo, estos medicamentos pueden alternarse cada 3-4 horas. Por ejemplo, si bhumika ibuprofeno a las 9 am, puede belen acetaminofn al medioda, ibuprofeno a las 3 pm, etc. - Se recomienda encarecidamente que tome ibuprofeno con alimentos para ayudar a prevenir la irritacin estomacal. Si lo bhumika por ms de un da o dos, puede considerar belen un medicamento para el cido maribel Pepcid o Xantac, disponible sin receta, para proteger bae estmago. [place] debe tomarse a primera hora de la maana 30-60 minutos antes de cualquier alimento o medicamento. - Si bae erupcin y dolor no mejoran kelsey la prxima semana, lo murrell remitido a la clnica de medicina interna para un seguimiento. - Busque atencin mdica inmediata si tiene un empeoramiento significativo de jerome sntomas, la erupcin se propaga a otras reas de bae cuerpo, no puede controlar bae dolor, no puede orinar o si tiene cualquier otra emergencia mdica. Print Language: SPA - Post Discharge Activity Forms/Work/School Notes: Back to Work
--- NOTE | 2019-03-09 07:35 | PDOC ---
Attending Attestation - Resident Resident Name: WilmarsandyRenetta - ED Attending Attestation I have performed the following: I have examined & evaluated the patient, The case was reviewed & discussed with the resident, I agree w/resident's findings & plan, Exceptions are as noted - HPI HPI: 03/09/19 07:30 58 yo male h/o DM sciatica, HTN HLD herniated disc here wtih 2 days of zoster rash right side low back radiating around to suprapubic groin, no f/c no difficulty with urination, mild increased effort to urinate but has had before the rash. . states pain radiates down his leg to his foot. also c/o dry mouth. was seen at [facility] for same 2 days ago, ot rx for antiviral, but pharmacy was closed all weekend, so didn't fill rx. no other complaints. took tylenol for pain, yesterday no improvement. - Physicial Exam PE: 03/09/19 07:33 awake alert lungs clear bilaterally heart rrr n o mrg abd soft nt nd. skin zostiform rash right posterior back L5/ S1 distribution around to suprapubic and scrotal region. no crepitus. fluid filled lesions, no scabbing. nuero alert oriented x 3. - Medical Decision Making 03/09/19 07:34 58 yo male zoster, L5 S1 . no current urinary retention. plan ua labs r/o superimposed infection, pain control. polo resend rx for valtre,x and percocet for pain.
[2019-03-09 08:05] LABS: BILIRUBIN,TOTAL 0.6 mg/dL (0.2-1); CALCIUM 9.2 mg/dL (8.5-10.1); CREATININE 0.7 mg/dL (0.55-1.3); TOT PROT 6.8 g/dl (6.4-8.2)
[2019-03-09 08:10] LABS: BASO % 0.8 % (0-2.0); EOS % 1.6 % (0-4.5); HEMATOCRIT 46.2 % (35.4-49); HEMOGLOBIN 15.7 GM/dL (11.7-16.9); LYMPH % 24.7 % (8-40); MCH 29.8 pg (25.7-33.7); MCHC 33.9 g/dl (32.0-35.9); MEAN PLT VOLUME 9.2 fl (7.5-11.1); MONO % 12.1 % (3.8-10.2); NEUT % 60.8 % (42.8-82.8); PLATELET COUNT 140 K/MM3 (134-434); RBC 5.25 M/mm3 (4.00-5.60); RDW 14.3 % (11.9-15.9); WHITE BLOOD COUNT 3.8 K/mm3 (4.0-10.0)
[2019-03-09 08:30] LABS: PH,URINE 5.5 (5.0-8.0); URINE APPEARANCE CLEAR; URINE BILIRUBIN NEGATIVE (NEGATIVE); URINE COLOR YELLOW; URINE GLUCOSE (UA) 1+ (NEGATIVE); URINE KETONE TRACE (NEGATIVE); URINE LEUK ESTERASE NEGATIVE (NEGATIVE); URINE NITRITE NEGATIVE (NEGATIVE); URINE PROTEIN NEGATIVE (NEGATIVE)
--- NOTE | 2019-03-09 09:19 | PDOC ---
*Physical Exam - Vital Signs Last Vital Signs Temp Pulse Resp BP Pulse Ox 98.1 F 94 H 18 132/76 98 03/09/19 06:06 03/09/19 06:06 03/09/19 06:06 03/09/19 06:06 03/09/19 06:06 - Physical Exam Comments: 03/09/19 09:19 Rustam Hartley is a 58yo man with a PMH of HTN, HLD, NIDDM, and chronic back pain who presents with a rash over the right low back, right hip, and around to the right scrotum. Found to have acute shingles infection. ED Treatment Course - LABORATORY CBC & Chemistry Diagram: 03/09/19 07:30 03/09/19 07:30 - ADDITIONAL ORDERS Additional order review: Laboratory Results 03/09/19 03/09/19 07:30 07:30 Sodium 136 Potassium 4.0 Chloride 101 Carbon Dioxide 28 Anion Gap 8 BUN 11 Creatinine 0.7 Est GFR (CKD-EPI)AfAm 120.56 Est GFR (CKD-EPI)NonAf 104.02 Random Glucose 143 H Calcium 9.2 Total Bilirubin 0.6 AST 11 L ALT 21 Alkaline Phosphatase 78 Total Protein 6.8 Albumin 4.0 Urine Color Yellow Urine Appearance Clear Urine pH 5.5 Ur Specific [place] 1.028 Urine Protein Negative Urine Glucose (UA) 1+ H Urine Ketones Trace H Urine Blood Negative Urine Nitrite Negative Urine Bilirubin Negative Urine Urobilinogen 1.0 Ur Leukocyte Esterase Negative 03/09/19 07:30 RBC 5.25 MCV 88.0 MCHC 33.9 RDW 14.3 MPV 9.2 Neutrophils % 60.8 Lymphocytes % 24.7 Monocytes % 12.1 H Eosinophils % 1.6 Basophils % 0.8 - Medications Given in the ED: ED Medications Discontinued Medications Generic Name Dose Route Start Last Admin Trade Name Freq PRN Reason Stop Dose Admin Ibuprofen 800 mg 03/09/19 06:25 03/09/19 06:44 Motrin - PO 03/09/19 06:26 800 mg ONCE ONE Administration Oxycodone/Acetaminophen 1 combo 03/09/19 07:14 03/09/19 07:40 Percocet 5/325 - PO 03/09/19 07:15 1 combo ONCE ONE Administration Valacyclovir HCl 1,000 mg 03/09/19 06:25 03/09/19 06:45 Valtrex - PO 03/09/19 06:26 1,000 mg ONCE ONE Administration Medical Decision Making - Medical Decision Making 03/09/19 09:35 -Confirmed with his pharmacy that he does have Valtrex available. 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 *DC/Admit/Observation/Transfer Diagnosis at time of Disposition: Shingles Qualifiers: Herpes zoster complications: without complications Qualified Code(s): B02.9 - Zoster without complications - Discharge Dispostion Disposition: HOME Condition at time of disposition: Stable - Referrals Referrals: Amira Mansfield [Primary Care Provider] - - Patient Instructions Printed Discharge Instructions: DI for Shingles Additional Instructions: Discharge Instructions: You were seen in the emergency department for a blistering rash. This rash is a disease called shingles. Home Care and Follow Up: - You have been prescribed an antibiotic called valacyclovir. This should be taken every 8 hours (three times per day) for the next 14 days - You may use over the counter medications as needed for pain at home. 650- 1000mg acetaminophen (Tylenol) or 600mg ibuprofen (Motrin or Advil) can be used every 6-8 hours. If needed for continued pain, these medications may be alternated every 3-4 hours. For example, if you take ibuprofen at 9am, you may take acetaminophen at noon, ibuprofen at 3pm, etc. - It is strongly recommended that you take ibuprofen with food to help prevent stomach irritation. If you are taking it for more than a day or two, you may consider taking an acid medication such as Pepcid or Xantac, available over the counter, to protect your stomach. This should be taken first thing in the morning 30-60 minutes before any food or medications. - If your rash and pain not improve over the next week, you have been referred to the internal medicine clinic for follow up. - Seek immediate medical care if you have significant worsening of your symptoms , the rash spreads to other areas of your body, you are unable to control your pain, you are unable to urinate, or you have any other medical emergency, Instrucciones de descarga: Usted fue visto en el departamento de emergencias por checo erupcin con ampollas. Esta erupcin es checo enfermedad llamada culebrilla. Atencin domiciliaria y seguimiento: - Le murrell recetado un antibitico llamado valaciclovir. [place] debe tomarse cada 8 horas (darien veces al da) kelsey los prximos 14 gómez - Puede usar medicamentos de venta sam segn sea necesario para el dolor en el hogar. Se pueden usar 650-1000 mg de paracetamol (Tylenol) o 600 mg de ibuprofeno (Motrin o Advil) cada 6-8 horas. Si es necesario para el dolor continuo, estos medicamentos pueden alternarse cada 3-4 horas. Por ejemplo, si bhumika ibuprofeno a las 9 am, puede belen acetaminofn al medioda, ibuprofeno a las 3 pm, etc. - Se recomienda encarecidamente que tome ibuprofeno con alimentos para ayudar a prevenir la irritacin estomacal. Si lo bhumika por ms de un da o dos, puede considerar belen un medicamento para el cido maribel Pepcid o Xantac, disponible sin receta, para proteger bae estmago. [place] debe tomarse a primera hora de la maana 30-60 minutos antes de cualquier alimento o medicamento. - Si bae erupcin y dolor no mejoran kelsey la prxima semana, lo murrell remitido a la clnica de medicina interna para un seguimiento. - Busque atencin mdica inmediata si tiene un empeoramiento significativo de jerome sntomas, la erupcin se propaga a otras reas de bae cuerpo, no puede controlar bae dolor, no puede orinar o si tiene cualquier otra emergencia mdica. Print Language: SPA - Post Discharge Activity Forms/Work/School Notes: Back to Work
[2019-03-09 10:30] VITALS: BP 127/89; PULSE 87; TEMP 98
== END 2019-03-09 10:43 | disposition home or self-care (01) ==
LOC: JER 05:36
DX: B02.9 Zoster without complications (principal); I10 Essential (primary) hypertension; E78.00 Pure hypercholesterolemia, unspecified; E11.9 Type 2 diabetes mellitus without complications; Z79.84 Long term (current) use of oral hypoglycemic drugs
CPT/HCPCS: 36415; 80053; 81003; 85025; 87086; 99282-25

== ENCOUNTER 2022-06-11 01:05 | Emergency (ER) | payer OTHER ==
[2022-06-11 01:47] VITALS: BP 135/75; TEMP 99.8; BMI 34.0
[2022-06-11] MEDS ORDERED: IBUPROFEN 200 MG TABLET PO ONE (02:19)
[2022-06-11] MEDS ORDERED: IBUPROFEN 600 MG TABLET (FP) PO ONE ×2 (02:31→02:32)
[2022-06-11] MEDS ORDERED: SODIUM CHLORIDE 0.9% 500 ML INFUS.BAG IV ONE (02:43)
[2022-06-11 03:07] LABS: BASO % 0.3 % (0-2.0); EOS % 0.5 % (0-4.5); HEMOGLOBIN 14.7 GM/dL (11.7-16.9); LYMPH % 8.4 % (8-40); MCH 28.7 pg (25.7-33.7); MCHC 34.2 g/dl (32.0-35.9); MEAN PLT VOLUME 8.6 fl (7.5-11.1); NEUT % 80.8 % (42.8-82.8); PLATELET COUNT 159 10^3/uL (134-434); RBC 5.12 M/mm3 (4.00-5.60); RDW 15.5 % (11.9-15.9); WHITE BLOOD COUNT 5.5 K/mm3 (4.0-10.0)
[2022-06-11 03:16] LABS: INR 1.02 (0.83-1.09); PROTHROMBIN TIME (PATIENT) 11.7 SEC (9.7-13.0)
[2022-06-11 03:19] LABS: ACTIVATED PTT 26.2 SECONDS (25.2-36.5)
[2022-06-11 03:28] LABS: BLOOD UREA NITROGEN 14.5 mg/dL (7-18); CALCIUM 9.5 mg/dL (8.5-10.1)
[2022-06-11 03:33] LABS: BILIRUBIN,TOTAL 0.3 mg/dL (0.2-1); TOT PROT 7.4 g/dl (6.4-8.2)
[2022-06-11 04:31] VITALS: PULSE 84; RESP 18
== END 2022-06-11 05:06 | disposition home or self-care (01) ==
LOC: JER 01:05
DX: M54.9 Dorsalgia, unspecified (principal)
CPT/HCPCS: 0241U-QW; 36415; 71045-TC-FY; 80053; 83735; 84443; 84484; 85025; 85610; 85730; 93005; 93010; 99284-25

== ENCOUNTER 2022-09-01 03:15 | Emergency (ER) | payer OTHER ==
[2022-09-01 03:26] VITALS: BP 116/72; PULSE 86; RESP 18; TEMP 97.9; BMI 33.6
[2022-09-01] MEDS ORDERED: GABAPENTIN 100 MG CAPSULE PO ONE (04:34)
[2022-09-01] MEDS ORDERED: ACETAMINOPHEN 500 MG TABLET (FP) PO ONE (04:34)
[2022-09-01] MEDS ORDERED: ACETAMINOPHEN 325 MG TABLET (FP) ONE (04:47)
[2022-09-01] MEDS ORDERED: GABAPENTIN 100 MG CAPSULE ONE (04:47)
[2022-09-01] MEDS ORDERED: AMOX TR/POT CLAV 875MG/125MG TABLETS (FP) PO ONE (05:51)
== END 2022-09-01 06:15 | disposition home or self-care (01) ==
LOC: JER 03:15
DX: R51.9 Headache, unspecified (principal); J01.90 Acute sinusitis, unspecified
CPT/HCPCS: 70450-TC; 99284-25